=== PATIENT | male | born 1980 | race African-American/Black ===

== ENCOUNTER 2018-12-29 17:06 | Emergency (ER) | payer SELFPAY ==
[~2018-12-29] VITALS: Ht 175.3 cm; Wt 68.2 kg
[~2018-12-29 17:06] MED LIST: LANS30CA55 PO
[2018-12-29] MEDS ORDERED: LIDOCAINE 5% TRANSDERMAL PATCH TD ONE (19:45)
[2018-12-29 20:06] VITALS: BP 110/71
== END 2018-12-29 20:14 | disposition home or self-care (01) ==
LOC: EMS 17:07
DX: R07.89 Other chest pain (principal); K21.9 Gastro-esophageal reflux disease without esophagitis; F17.210 Nicotine dependence, cigarettes, uncomplicated

== ENCOUNTER 2020-01-24 21:24 | Emergency (ER) | payer SELFPAY ==
[~2020-01-24] VITALS: Ht 175.3 cm; Wt 81.8 kg
[2020-01-24 23:30] VITALS: BP 135/85
== END 2020-01-24 23:39 | disposition home or self-care (01) ==
LOC: EMS 21:24
DX: S62.336A Displaced fracture of neck of fifth metacarpal bone, right hand, initial encounter for closed fracture (principal); K21.9 Gastro-esophageal reflux disease without esophagitis; F17.210 Nicotine dependence, cigarettes, uncomplicated; Z88.6 Allergy status to analgesic agent; W22.8XXA Striking against or struck by other objects, initial encounter; Y93.89 Activity, other specified; Y92.89 Other specified places as the place of occurrence of the external cause; Y99.8 Other external cause status

== ENCOUNTER 2020-01-25 13:41 | Emergency (ER) | payer MEDICAID ==
[~2020-01-25] VITALS: Ht 175.3 cm; Wt 75.0 kg
[2020-01-25 13:44] VITALS: BP 142/75
== END 2020-01-25 14:56 | disposition home or self-care (01) ==
LOC: EMS 13:46
DX: S62.336A Displaced fracture of neck of fifth metacarpal bone, right hand, initial encounter for closed fracture (principal); Z79.1 Long term (current) use of non-steroidal anti-inflammatories (NSAID); F17.210 Nicotine dependence, cigarettes, uncomplicated; R03.0 Elevated blood-pressure reading, without diagnosis of hypertension; W22.8XXA Striking against or struck by other objects, initial encounter; Y93.89 Activity, other specified; Y92.89 Other specified places as the place of occurrence of the external cause; Y99.8 Other external cause status